=== PATIENT | female | born 1970 | race African-American/Black ===

== ENCOUNTER 2018-09-09 00:40 | Inpatient (IN) | payer OTHER, MEDICAID ==
[2018-09-09] MEDS: hydrALAzine 20 MG INJ IV (01:24)
[2018-09-09 01:41] LABS: ADD MAN DIFF? NO
[2018-09-09] MEDS: METHYLPREDNISOLONE 125 MG INJ IV (01:41)
[2018-09-09] MEDS: ASPIRIN 81 MG TAB PO ×2 (01:42→12:18)
[2018-09-09 01:44] LABS: BASOPHILS % 0.4 % (0.0-2.0); EOSINOPHILS # 0.1 10^3/ul (0.0-0.5); HEMATOCRIT 29.5 % (37.0-47.0); HEMOGLOBIN 9.3 g/dl (12.0-16.0); LYMPHOCYTES # 1.5 10^3/ul (0.8-2.9); MEAN CORPUSCULAR HEMOGLOBIN 28.4 pg (29.0-33.0); MEAN CORPUSCULAR HGB CONC 31.5 g/dl (32.0-37.0); MEAN CORPUSCULAR VOLUME 89.9 fl (82.0-101.0); MEAN PLATELET VOLUME 11.6 fl (7.4-10.4); MONOCYTE # 0.9 10^3/ul (0.3-0.9); MONOCYTES % 10.7 % (0.0-11.0); NEUTROPHIL # 5.5 10^3/ul (1.6-7.5); NEUTROPHILS % 68.5 % (39.0-77.0); PLATELET COUNT 142 10^3/UL (140-415); RED BLOOD COUNT 3.28 10^6/ul (4.20-5.40); RED CELL DISTRIBUTION WIDTH 14.2 % (11.5-14.5)
[2018-09-09 01:44] LABS: WHITE BLOOD COUNT 8.1 10^3/ul (4.8-10.8)
[2018-09-09] MEDS: IPRATROPIUM (NEB) 0.5 MG/2.5 ML AMP INH (01:50)
[2018-09-09] MEDS: ALBUTEROL 0.5% (NEB) 2.5 MG/0.5 ML AMP INH (01:50)
[2018-09-09] MEDS ORDERED: LORAZEPAM 2 MG INJ (02:00)
[2018-09-09 02:02] LABS: ADD UMIC YES; UR ASCORBIC ACID NEGATIVE (NEGATIVE); UR BILIRUBIN (Dip) NEGATIVE (NEGATIVE); UR BLOOD (Dip) 1+ mg/dL (NEGATIVE); UR CLARITY CLEAR (CLEAR); UR COLOR STRAW (YELLOW); UR GLUCOSE (Dip) 1+ mg/dL (NEGATIVE); UR KETONES (Dip) NEGATIVE (NEGATIVE); UR LEUKOCYTE ESTERASE (Dip) 1+ Leu/ul (NEGATIVE); UR NITRITE (Dip) NEGATIVE (NEGATIVE); UR RBC 6 /HPF (0-5); UR SPECIFIC GRAVITY (Dip) 1.011 (1.003-1.030); UR SQUAMOUS EPITHELIAL CELL FEW /HPF (FEW); UR TOTAL PROTEIN (Dip) 2+ mg/dl (NEGATIVE); UR UROBILINOGEN (Dip) NEGATIVE (NEGATIVE); UR WBC 9 /HPF (0-5)
[2018-09-09] MEDS: LORAZEPAM 2 MG INJ IV ×3 (02:06→20:40)
[2018-09-09 02:07] LABS: ALANINE AMINOTRANSFERASE 24 IU/L (13-69); ALBUMIN 3.8 g/dl (3.3-4.9); ALBUMIN/GLOBULIN RATIO 1.08; ALKALINE PHOSPHATASE 88 IU/L (42-121); ANION GAP 14 (5-13); ASPARTATE AMINO TRANSFERASE 33 IU/L (15-46); BILIRUBIN,INDIRECT 0.4 mg/dl (0-1.1); BILIRUBIN,TOTAL 0.4 mg/dl (0.2-1.3); BLOOD UREA NITROGEN 53 mg/dl (7-20); CALCIUM 8.8 mg/dl (8.4-10.2); CARBON DIOXIDE 20 mmol/L (21-31); CHLORIDE 108 mmol/L (97-110); CREATININE 9.04 mg/dl (0.44-1.00); GLUCOSE 106 mg/dl (70-220); LIPASE 36 U/L (23-300); POTASSIUM 3.9 mmol/L (3.5-5.1); SODIUM 142 mmol/L (135-144); TOTAL PROTEIN 7.3 g/dl (6.1-8.1)
[2018-09-09 02:15] LABS: AMPHETAMINE/METHAMPHETAMINE Negative (NEGATIVE); BARBITURATES Negative (NEGATIVE); BENZODIAZEPINES Negative (NEGATIVE); CANNABINOIDS Negative (NEGATIVE); OPIATES Negative (NEGATIVE)
[2018-09-09 02:16] LABS: COCAINE Positive (NEGATIVE)
[2018-09-09 02:19] LABS: AADO2 Arterial 569.9 mmHg (7.0-24.0); Allen Test ACCEPTAB; Arterial Base Excess -16.1 mmol/L (-3.0-3); Arterial Blood Gas Oxygen Sat 93.5 mmHG (95.0-98.0); Arterial COHb 2.8 % (0.0-3.0); Arterial Fraction of Oxyhgb 90.5 % (93.0-99.0); Arterial MetHb 0.4 % (0.0-1.5); Arterial Total Hemglobin 12.5 g/dl (12.0-18.0); Arterial pCO2 51.2 mmhg (35-45); MODE MASK - NRB; Site Right Radial
[2018-09-09 02:22] LABS: TROPONIN-I 0.032 ng/ml (0.000-0.120)
[2018-09-09] MEDS: CEFTRIAXONE 1 GM/50 ML (PMX) 50 ML IVPB ×2 (02:44→18:49)
[2018-09-09] MEDS: NA BICARBONATE 8.4% 50 ML SYG IV (02:44)
[2018-09-09] MEDS: niCARdipine-NS 0.1MG/ML DRIP 200 ML IV ×2 (02:57→07:34)
[2018-09-09] MEDS ORDERED: LORAZEPAM 2 MG INJ IV (03:30)
[2018-09-09] MEDS ORDERED: BISACODYL (EC) 5 MG TAB PO (04:30)
[2018-09-09] MEDS ORDERED: DOCUSATE SODIUM 100 MG CAP PO (04:30)
[2018-09-09] MEDS ORDERED: NACL 0.9% 3 ML SYG IV (04:30)
[2018-09-09] MEDS ORDERED: ONDANSETRON 4 MG TAB PO (04:30)
[2018-09-09] MEDS: SOD CHLORIDE 0.9% 1,000 ML IV (04:32)
[2018-09-09] MEDS: DILTIAZEM 25 MG INJ IV (06:11)
[2018-09-09] MEDS: LEVALBUTEROL (NEB) 1.25 MG/0.5 ML AMP HHN ×5 (06:17→19:50)
[2018-09-09 08:40] LABS: AADO2 Arterial 479.1 mmHg (7.0-24.0); Allen Test ACCEPTAB; Arterial Base Excess -4.4 mmol/L (-3.0-3); Arterial Blood Gas Oxygen Sat 99.2 mmHG (95.0-98.0); Arterial COHb 0.6 % (0.0-3.0); Arterial Fraction of Oxyhgb 98.2 % (93.0-99.0); Arterial HCO3 19.6 mmol/L (22.0-26.0); Arterial MetHb 0.4 % (0.0-1.5); Arterial Total Hemglobin 12.1 g/dl (12.0-18.0); Arterial pCO2 32.6 mmhg (35-45); MODE HFNC; Site Right Radial
[2018-09-09] MEDS: predniSONE 20 MG TAB PO (10:16)
[2018-09-09] MEDS: QUETIAPINE 100 MG TAB PO ×2 (10:16→20:27)
[2018-09-09 10:26] LABS: ADD MAN DIFF? NO
[2018-09-09 10:35] LABS: WHITE BLOOD COUNT 5.8 10^3/ul (4.8-10.8)
[2018-09-09 10:35] LABS: ABNORMAL IP MESSAGE 1; BASOPHILS % 0.2 % (0.0-2.0); HEMATOCRIT 30.5 % (37.0-47.0); HEMOGLOBIN 9.7 g/dl (12.0-16.0); LYMPHOCYTES # 0.4 10^3/ul (0.8-2.9); LYMPHOCYTES % 7.5 % (15.0-51.0); MEAN CORPUSCULAR HEMOGLOBIN 27.7 pg (29.0-33.0); MEAN CORPUSCULAR HGB CONC 31.8 g/dl (32.0-37.0); MEAN CORPUSCULAR VOLUME 87.1 fl (82.0-101.0); MEAN PLATELET VOLUME 10.7 fl (7.4-10.4); MONOCYTE # 0.1 10^3/ul (0.3-0.9); MONOCYTES % 2.4 % (0.0-11.0); NEUTROPHIL # 5.2 10^3/ul (1.6-7.5); NEUTROPHILS % 89.7 % (39.0-77.0); PLATELET COUNT 141 10^3/UL (140-415); RED CELL DISTRIBUTION WIDTH 14.3 % (11.5-14.5)
[2018-09-09 10:40] LABS: POSITIVE DIFF @See below
[2018-09-09 10:55] LABS: ALANINE AMINOTRANSFERASE 35 IU/L (13-69); ALKALINE PHOSPHATASE 83 IU/L (42-121); ANION GAP 9 (5-13); ASPARTATE AMINO TRANSFERASE 41 IU/L (15-46); BILIRUBIN,INDIRECT 0.3 mg/dl (0-1.1); BILIRUBIN,TOTAL 0.3 mg/dl (0.2-1.3); BLOOD UREA NITROGEN 56 mg/dl (7-20); CALCIUM 8.8 mg/dl (8.4-10.2); CARBON DIOXIDE 22 mmol/L (21-31); CHLORIDE 106 mmol/L (97-110); CREATININE 9.44 mg/dl (0.44-1.00); GLUCOSE 182 mg/dl (70-220); PHOSPHORUS 3.1 mg/dl (2.5-4.9); POTASSIUM 4.8 mmol/L (3.5-5.1); SODIUM 137 mmol/L (135-144)
[2018-09-09 10:56] LABS: ALBUMIN 3.3 g/dl (3.3-4.9); ALBUMIN/GLOBULIN RATIO 0.91; TOTAL PROTEIN 6.9 g/dl (6.1-8.1)
[2018-09-09 11:10] LABS: CREATINE KINASE 156 IU/L (23-200)
[2018-09-09 11:20] LABS: HEPATITIS B SURFACE ANTIGEN NEGATIVE (NEGATIVE)
[2018-09-09 11:21] LABS: CK INDEX 0.9; CK-MB 1.38 ng/ml (0.0-2.4)
[2018-09-09 11:28] LABS: TROPONIN-I 0.127 ng/ml (0.000-0.120)
[2018-09-09] MEDS: AMLODIPINE 10 MG TAB PO (12:18)
[2018-09-09] MEDS: LOSARTAN 50 MG TAB PO (12:18)
[2018-09-09] MEDS ORDERED: niCARdipine-NS 0.1MG/ML DRIP 200 ML (13:39)
[2018-09-09] MEDS: LABETALOL 200 MG in SOD CHLORIDE 0.9% 160 ML IV (13:59)
[2018-09-09 14:18] LABS: CREATINE KINASE 140 IU/L (23-200)
[2018-09-09] MEDS ORDERED: NITROGLYCERIN 50 MG/D5W (PMX) 250 ML (14:18)
[2018-09-09 14:29] LABS: CK-MB 1.33 ng/ml (0.0-2.4)
[2018-09-09 14:30] LABS: TROPONIN-I 0.145 ng/ml (0.000-0.120)
[2018-09-09] MEDS: NITROGLYCERIN 50 MG/D5W (PMX) 250 ML IV (14:34)
[2018-09-09] MEDS ORDERED: traMADol 50 MG TAB PO (16:30)
[2018-09-09] MEDS: HYDROmorphONE 0.5 MG/0.5 ML SYG IV (17:30)
[2018-09-09 19:06] LABS: CREATINE KINASE 149 IU/L (23-200)
[2018-09-09 19:18] LABS: CK INDEX 0.7; CK-MB 1.03 ng/ml (0.0-2.4); TROPONIN-I 0.093 ng/ml (0.000-0.120)
[2018-09-09] MEDS: ATORVASTATIN 40 MG TAB PO (20:27)
[2018-09-09 20:54] LABS: CREATINE KINASE 155 IU/L (23-200)
[2018-09-09 21:04] LABS: CK INDEX 0.7
[2018-09-09 21:06] LABS: TROPONIN-I 0.083 ng/ml (0.000-0.120)
[2018-09-09 21:17] LABS: CK-MB 1.05 ng/ml (0.0-2.4)
[2018-09-10] MEDS: LEVALBUTEROL (NEB) 1.25 MG/0.5 ML AMP HHN ×3 (01:20→08:49)
[2018-09-10 05:11] LABS: ADD MAN DIFF? NO
[2018-09-10 05:15] LABS: BASOPHILS % 0.2 % (0.0-2.0); EOSINOPHILS % 0.1 % (0.0-7.0); HEMATOCRIT 29.4 % (37.0-47.0); HEMOGLOBIN 9.4 g/dl (12.0-16.0); LYMPHOCYTES # 1.6 10^3/ul (0.8-2.9); LYMPHOCYTES % 14.4 % (15.0-51.0); MEAN CORPUSCULAR HEMOGLOBIN 28.1 pg (29.0-33.0); MEAN CORPUSCULAR VOLUME 87.8 fl (82.0-101.0); MEAN PLATELET VOLUME 12.1 fl (7.4-10.4); MONOCYTE # 1.3 10^3/ul (0.3-0.9); MONOCYTES % 11.3 % (0.0-11.0); NEUTROPHIL # 8.1 10^3/ul (1.6-7.5); NEUTROPHILS % 73.5 % (39.0-77.0); PLATELET COUNT 153 10^3/UL (140-415); RED BLOOD COUNT 3.35 10^6/ul (4.20-5.40); RED CELL DISTRIBUTION WIDTH 14.3 % (11.5-14.5)
[2018-09-10 06:27] LABS: ALANINE AMINOTRANSFERASE 31 IU/L (13-69); ALBUMIN 2.9 g/dl (3.3-4.9); ALKALINE PHOSPHATASE 70 IU/L (42-121); ANION GAP 11 (5-13); ASPARTATE AMINO TRANSFERASE 25 IU/L (15-46); BILIRUBIN,INDIRECT 0.1 mg/dl (0-1.1); BILIRUBIN,TOTAL 0.1 mg/dl (0.2-1.3); BLOOD UREA NITROGEN 45 mg/dl (7-20); CALCIUM 8.7 mg/dl (8.4-10.2); CARBON DIOXIDE 24 mmol/L (21-31); CHLORIDE 102 mmol/L (97-110); CREATININE 6.14 mg/dl (0.44-1.00); GLUCOSE 146 mg/dl (70-220); MAGNESIUM 1.8 mg/dl (1.7-2.5); PHOSPHORUS 3.9 mg/dl (2.5-4.9); SODIUM 137 mmol/L (135-144); TOTAL PROTEIN 6.1 g/dl (6.1-8.1)
[2018-09-10] MEDS: LOSARTAN 50 MG TAB PO (08:55)
[2018-09-10] MEDS: ASPIRIN 81 MG TAB PO (08:55)
[2018-09-10] MEDS: QUETIAPINE 100 MG TAB PO (08:55)
[2018-09-10] MEDS: predniSONE 20 MG TAB PO (08:55)
[2018-09-10] MEDS: AMLODIPINE 10 MG TAB PO (08:56)
[2018-09-10] MEDS ORDERED: FLUTICASONE 0.05% 16 GM NAS SPRAY NASAL (10:00)
[2018-09-10] MEDS ORDERED: LOSARTAN 50 MG TAB PO (10:00)
[2018-09-10] MEDS ORDERED: LORATADINE/PSEUDOEPHED (SR) TAB PO (10:00)
[2018-09-10 10:31] LABS: HEMOGLOBIN A1C 5.5 % (0-5.9)
[2018-09-11] MEDS ORDERED: LOSARTAN 50 MG TAB PO (09:00)
[2018-09-11] MEDS ORDERED: INFLUENZA VIRUS VACCINE 0.5 ML (DISPENSING) IM* (10:00)
== END 2018-09-10 10:15 | disposition left against medical advice (07) | DRG 280 ==
LOC: E/R 00:40 → ICU 03:57
PROC: 5A1D70Z Performance of Urinary Filtration, Intermittent, Less than 6 Hours Per Day (ICD-10-PCS; principal; 2018-09-09)
DX: I21.A1 Myocardial infarction type 2 (principal); N18.6 End stage renal disease; J96.02 Acute respiratory failure with hypercapnia; I50.31 Acute diastolic (congestive) heart failure; N39.0 Urinary tract infection, site not specified; E87.4 Mixed disorder of acid-base balance; I16.1 Hypertensive emergency; F14.921 Cocaine use, unspecified with intoxication delirium; J45.41 Moderate persistent asthma with (acute) exacerbation; F14.23 Cocaine dependence with withdrawal; Z99.2 Dependence on renal dialysis; Z72.0 Tobacco use; Z91.15 Patient's noncompliance with renal dialysis; Z91.14 Patient's other noncompliance with medication regimen
CPT/HCPCS: 36415; 36600; 70450; 71045; 80053; 80307; 81001; 82550; 82553; 82803; 83036; 83690; 83735; 84100; 84484; 85025; 87081; 87340; 90935; 93005; 93306; 94640; 94644; 94664; 96365; 96375; 99291-25